=== PATIENT | male | born 1975 | race Caucasian/White ===

== ENCOUNTER 2022-12-31 05:38 | Outpatient (CLI) | payer BC ==
[~2022-12-31] VITALS: Ht 193 cm; Wt 147.4 kg
[2023-01-01] MEDS ORDERED: METF-478 PO (10:53)
[2023-01-01] MEDS ORDERED: LISI1TAB46 PO (10:53)
== END 2023-01-01 10:56 | disposition home or self-care (01) ==
LOC: PREOP 05:38
PROVIDERS: ATTEND Surgery
DX: Z01.818 Encounter for other preprocedural examination (principal)

== ENCOUNTER 2023-01-13 09:56 | Day surgery (SDC) | payer BC ==
[~2023-01-13] VITALS: Ht 193 cm; Wt 147.4 kg
[~2023-01-13 09:56] MED LIST: LISI1TAB46 PO; METF-478 PO
[2023-01-13] MEDS ORDERED: LACTATED RINGERS 1,000 ML IV STA (09:58)
[2023-01-13 10:17] VITALS: BP 124/84
--- NOTE | 2023-01-13 10:30 | Progress Note-Pre Operative ---
Pre-Operative Progress Note Date H&P Reviewed: Jan 13, 2023 Time H&P Reviewed: 10:30 History & Physical: H&P Reviewed, Patient Examed, No changes noted Pre-Operative Diagnosis: screening colonoscopy ESTELA ROBLES DO Jan 13, 2023 10:30
[2023-01-13] MEDS ORDERED: PROPOFOL INJECTION 50 ML IV ONE ×2 (11:15→11:20)
--- NOTE | 2023-01-13 11:36 | Progress Note-Post Operative ---
Post-Operative Progess Note Surgeon (s)/Disassembler (s) Surgeon ESTELA ROBLES DO Disassembler: n/a Pre-Operative Diagnosis screening colonoscopy Post-Operative Diagnosis colon polyps x2 Procedure & Operative Findings Date of Procedure 01/13/23 Procedure Performed/Findings colonoscopy with hot biopsy polypectomy x2 Anesthesia Type per assistant professor of communication Estimated Blood Loss Estimated blood loss (mL): none Specimens/Packing Specimens Removed colon polyps ESTELA ROBLES DO Jan 13, 2023 11:36
--- NOTE | 2023-01-13 11:37 | Discharge Inst-Simple/Standard ---
Discharge Inst-Standard Reconcile Patient Problems Problems Reviewed?: Yes Patient Instructions/Follow Up Plan of Care/Instructions/FU: F/u with Dr. Nelson in 2 weeks Activity as Tolerated: Yes Discharge Diet: No Restrictions, Regular Diet ESTELA NELSON DO Jan 13, 2023 11:37
--- NOTE | 2023-01-13 11:37 | Anesthesia-General Post-Op ---
MAC Patient Condition Mental Status/LOC: Same as Preop Cardiovascular: Satisfactory Nausea/Vomiting: Absent Respiratory: Satisfactory Pain: Controlled Complications: Absent Post Op Complications Complications None Follow Up Care/Instructions Patient Instructions None needed. Anesthesiology Discharge Order Discharge Order Patient is doing well, no complaints, stable vital signs, no apparent adverse anesthesia problems. No complications reported per nursing. SACHIN RAZA CRNA Jan 13, 2023 11:37
[2023-01-13 11:40] VITALS: BP 120/59
[2023-01-13 11:45] VITALS: BP 122/64
[2023-01-13 12:05] VITALS: BP 105/81
--- NOTE | 2023-01-13 19:08 | OPERATIVE REPORT ---
DATE OF SERVICE: 01/13/2023 PREOPERATIVE DIAGNOSIS: Screening colonoscopy. POSTOPERATIVE DIAGNOSIS: Colon polyps x2. SURGEON: Estela Nelson DO ANESTHESIA: Per [employer]. ESTIMATED BLOOD LOSS: None. PROCEDURE: Colonoscopy with hot biopsy polypectomy x2. INDICATIONS: The patient is a 47-year-old male, needing screening colonoscopy. He understands risks and benefits of procedure and wished to proceed. Consent was signed in chart. DESCRIPTION OF PROCEDURE: The patient was taken to endoscopy suite, placed in left lateral recumbent position. Timeout was performed. Digital rectal exam was performed. No palpable polyps, masses or ulcerations. Scope was inserted in the rectum, advanced all the way to the cecum with minimal difficulty. Prep was adequate. Scope was then slowly retracted back. No polyps, masses or ulcerations in the cecum and ascending colon. In the transverse colon, small polyp was present, which hot biopsy polypectomy was performed. Scope was then continuously retracted back. No polyps, masses or ulcerations in the remainder of the transverse and descending colon and the sigmoid colon, Once in the rectum, a small polyp was present, which hot biopsy polypectomy was performed. Scope was then retroflexed noting no other pathology. Scope was returned to its normal position, slowly withdrawn until completely removed. The patient tolerated the procedure well, with no complications, taken to recovery room in stable condition. RECOMMENDATIONS: The patient will repeat colonoscopy in 5 years. Any issues before that, be seen at that time. He will follow up in 2 weeks to discuss pathology results. Job ID: [id number] DocumentID: [id number] Dictated Date: 01/13/2023 11:36:36 Health Science Specialist Date: 01/13/2023 19:06:00 Dictated By: ESTELA NELSON DO
== END 2023-01-13 12:09 | disposition home or self-care (01) ==
LOC: ENDO 09:56
PROVIDERS: ATTEND Surgery
DX: Z12.11 Encounter for screening for malignant neoplasm of colon (principal); D12.3 Benign neoplasm of transverse colon; K62.1 Rectal polyp; E66.01 Morbid (severe) obesity due to excess calories; Z68.39 Body mass index [BMI] 39.0-39.9, adult; Z28.310 Unvaccinated for COVID-19